=== PATIENT | female | born 1970 | race Two or more races ===

== ENCOUNTER → 2020-02-21 06:00 | Outpatient (CLI) | payer OTHER ==
[~2020-02-21] VITALS: Ht 170.2 cm; Wt 106.6 kg
== END | disposition home or self-care (01) ==
LOC: LAB 06:00 → SURH 02-24 11:38 → EDSTATUS 02-24 12:45
PROVIDERS: ATTEND Obstetrics & Gynecology
DX: N93.8 Other specified abnormal uterine and vaginal bleeding (principal); R87.613 High grade squamous intraepithelial lesion on cytologic smear of cervix (HGSIL); Z01.810 Encounter for preprocedural cardiovascular examination; Z01.818 Encounter for other preprocedural examination

== ENCOUNTER 2020-03-15 10:27 | Inpatient (IN) | payer OTHER ==
[~2020-03-15] VITALS: Ht 170.2 cm; Wt 106.6 kg
== END 2020-03-22 18:47 | disposition home or self-care (01) | DRG 683 ==
LOC: ER 10:27 → ICU-2 17:02 → ICU 17:02 → ICU-2 19:07 → ICU 21:09 → SURG 03-20 19:35
PROVIDERS: ADMIT Internal Medicine; ATTEND Internal Medicine
PROC: BW21ZZZ Computerized Tomography (CT Scan) of Abdomen and Pelvis (ICD-10-PCS; 2020-03-15)
PROC: 0T9430Z Drainage of Left Kidney Pelvis with Drainage Device, Percutaneous Approach (ICD-10-PCS; 2020-03-16)
PROC: 0T9330Z Drainage of Right Kidney Pelvis with Drainage Device, Percutaneous Approach (ICD-10-PCS; 2020-03-16)
PROC: B54PZZZ Ultrasonography of Bilateral Upper Extremity Veins (ICD-10-PCS; 2020-03-16)
PROC: B24BZZZ Ultrasonography of Heart with Aorta (ICD-10-PCS; 2020-03-16)
PROC: 30233N1 Transfusion of Nonautologous Red Blood Cells into Peripheral Vein, Percutaneous Approach (ICD-10-PCS; 2020-03-17)
PROC: 4A12X4Z Monitoring of Cardiac Electrical Activity, External Approach (ICD-10-PCS; principal; 2020-03-20)
DX: N17.9 Acute kidney failure, unspecified (principal); E87.2 Acidosis; I47.1 Supraventricular tachycardia; N13.6 Pyonephrosis; E66.9 Obesity, unspecified; C53.9 Malignant neoplasm of cervix uteri, unspecified; I16.0 Hypertensive urgency; I10 Essential (primary) hypertension; E87.5 Hyperkalemia; D64.9 Anemia, unspecified; R31.9 Hematuria, unspecified